=== PATIENT | female | born 1990 | race Caucasian/White ===

== ENCOUNTER 2017-06-10 10:42 | Emergency (ER) | payer OTHER ==
[~2017-06-10] VITALS: Ht 147.3 cm; Wt 79.9 kg
[2017-06-10 10:54] VITALS: Ht 147.3 cm; Wt 79.9 kg
[2017-06-10 12:22] VITALS: BP 177/76
== END 2017-06-10 12:22 | disposition home or self-care (01) ==
LOC: ED 10:42
DX: J02.9 Acute pharyngitis, unspecified (principal); Z88.0 Allergy status to penicillin